=== PATIENT | female | born 1995 | race Caucasian/White ===

== ENCOUNTER 2025-03-12 14:47 | Outpatient (CLI) | payer BC, OTHER, SELFPAY ==
--- NOTE | ~2025-03-12 | XR_ITS ---
HISTORY: M54.50 - Low back pain, unspecified COMPARISON: None. TECHNIQUE: 2 view lumbar spine. FINDINGS: Lumbar vertebral bodies are normally aligned. There are 5 non-rib bearing lumbar vertebral bodies. Disc spaces and vertebral body heights are well maintained. There are no lytic or sclerotic lesions. Paraspinal soft tissues are unremarkable. Straightening of the normal lordotic curvature is identified, possibly muscular in origin. IMPRESSION: No acute compression fracture, as detailed above. Reviewed, dictated and finalized at location A.
== END 2025-03-12 14:48 | disposition home or self-care (01) ==
PROVIDERS: PCP Family Medicine; Visit Provider Family Medicine
DX: M54.50 Low back pain, unspecified (principal); G89.29 Other chronic pain
CPT/HCPCS: 72100

== ENCOUNTER 2025-07-15 13:07 | Emergency (ER) | payer BC, OTHER, SELFPAY ==
[2025-07-15 13:19] VITALS: BP 136/88; PULSE 106; RESP 18; TEMP 36.8; O2SAT 100
--- NOTE | 2025-07-15 14:21 | ED_ITS ---
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 Patient states that since last night, she has been having a little more than vaginal spotting as well as intermittent dizziness. She states that she called her tax commissioner today and advised that she come to the ED for further evaluation. Patient has had mild intermittent abdominal cramping. Her last pregnancies were without complications. Denies fevers, chills, discharge. Related Data Home Medications ?Medication ?Instructions ?Recorded ?Confirmed ?Last Taken ?Type alprazolam 0.5 mg tablet (Xanax) 0.5 mg PO QHS PRN 02/2412/31/24 Unknown History Allergies Allergy/AdvReac Type Severity Reaction Status Date / Time No Known Allergies Allergy Verified 07/15/25 13:21 Review of Systems 2 Review of Systems: Gen.: Denies fevers or chills Eyes: Denies eye pain or visual change ENT: Denies congestion Respiratory: Denies shortness of breath or cough CV: Denies chest pain or palpitations GI: Denies abdominal pain nausea, emesis or diarrhea denies burning, urgency, frequency or hematuria Musculoskeletal: Denies back pain or muscle pain Neuro: Denies numbness, tingling, weakness or focal weakness Skin: Denies rash Except as documented, all other systems reviewed and negative [facility] Social History Social History Smoking status: Current every day smoker Additional smoking assessment comments: A pack last the pt a few weeks. Alcohol intake: current Substance use: never Gender identity (if verbalized by the patient): Female Exam 2 Narrative: APPEARANCE: No acute distress, nontoxic, resting in bed EYES: EOMI HEENT: Normocephalic, atraumatic, OMM RESPIRATORY: No respiratory distress Clear to auscultation bilaterally with no rhonchi wheezing or rales. CARDIOVASCULAR: Regular rate and rhythm without murmurs rubs or gallops. ABDOMINAL: Soft, mild suprapubic tenderness to palpation without rebound or guarding. MUSCULOSKELETAl: Moves all extremities. No clubbing, cyanosis or edema. NEURO: Awake and alert. Following commands, speech normal, no focal deficits SKIN:: Warm, dry. No rashes lesions or abrasions PSYCHIATRIC: Normal affect/mood, Course Vital Signs Vital signs: Vital Signs Temperature 98.2 F 07/15/25 13:19 Pulse Rate 106 H 07/15/25 13:19 Respiratory Rate 18 07/15/25 13:19 Blood Pressure 136/88 07/15/25 13:19 Pulse Oximetry 100 07/15/25 13:19 Temperature 97.9 F 07/15/25 14:45 Pulse Rate 92 07/15/25 15:29 Respiratory Rate 20 07/15/25 15:29 Blood Pressure 117/70 07/15/25 15:29 Pulse Oximetry 99 07/15/25 15:29 MDM - OB/Uterine Contractions MDM Narrative Medical decision making narrative: 30-year-old female approximately 8 weeks by Armin. He presented to the ED for vaginal bleeding and abdominal cramping. Initial evaluation, patient with no acute distress, afebrile, hemodynamically stable. She had some very mild suprapubic tenderness to palpation. CBC without significant abnormalities. Mild hypokalemia. Urine positive. HCG 800. She is not in the discriminatory zone at this point. She is otherwise stable. Repeat hCG will be scheduled for 2 days from now. She has an appoint with Ob on Monday which I advised her to go to. UA did show possible evidence of UTI so she will be given Keflex. Patient was agreeable to this plan. Given strict return precautions. Differential Diagnosis Differential diagnosis: Likely other Medical Records Attestation: I reviewed the patient's medical records. Lab Data Attestation: I reviewed the patient's lab results. 07/15/25 14:37 07/15/25 14:37 Labs: Lab Results 07/15/25 07/15/25 Range/Units 14:26 14:37 WBC 11.7 H (4.5-10.0) K/mm3 RBC 4.27 (4.2-5.4) M/mm3 Hgb 13.2 (12.0-15.0) g/dL Hct 38.9 (37.0-47.0) % MCV 91.1 (80-100) fl MCH 30.9 (26-34) pg MCHC 33.9 (32-36) g/dl RDW 14.2 (11.5-14.5) % Plt Count 298 (150-375) k/mm3 MPV 9.9 (7.4-10.4) fl Immature Gran % (Auto) 0.3 (0-0.5) % Neut % (Auto) 69.3 (45.5-73.1) % Lymph % (Auto) 24.3 (18.3-44.2) % [place] % (Auto) 5.2 (2.6-8.5) % Eos % (Auto) 0.6 (0-4.4) % Baso % (Auto) 0.3 (0.2-1.2) % Lymph # (Auto) 2.84 (0.9-3.2) K/mm3 [place] # (Auto) 0.6 (0.1-0.6) K/mm3 Eos # (Auto) 0.1 (0-0.3) K/mm3 Baso # (Auto) 0.0 (0.0-0.1) K/mm3 Abs Immat Gran (auto) 0.04 H (0.00-0.031) K/mm3 Absolute Neuts (auto) 8.1 H (1.3-6.7) K/mm3 Absolute Nucleated RBC 0.000 (0.0-0.012) K/mm3 Nucleated RBC % 0.0 (0.0-0.2) % Sodium 137 (137-145) mmol/L Potassium 3.2 L (3.4-5.0) mmol/L Chloride 104 (98-107) mmol/L Carbon Dioxide 22 (22-30) mmol/L Anion Gap 11 (4-12) mmol/L BUN 7 (7-17) mg/dL Creatinine 0.53 L (0.7-1.0) mg/dL Estim Creat Clear Calc 97 ml/min Estimated GFR > 60 (59 - ) Glucose 93 (65-110) mg/dL Calcium 9.0 (8.4-10.2) mg/dL Total Bilirubin 0.4 (0.2-1.3) mg/dL AST 38 H (14-36) U/L ALT 41 H (6-35) U/L Alkaline Phosphatase 57 (38-126) U/L Total Protein 8.2 (6.3-8.2) g/dL Albumin 4.6 (3.5-5.1) g/dL Beta HCG, Quant 862.71 mIU/ML Urine Color Yellow (Yellow) Urine Appearance Cloudy H (Clear) Urine pH 6.0 (5.0-9.0) Ur Specific [place] 1.012 (1.001-1.035) Urine Protein Negative (Negative) mg/dL Urine Glucose (UA) Negative (Negative) mg/dL Urine Ketones Trace H (Negative) mg/dL Ur Blood (Man) 2+ H (Negative) Urine Nitrate Negative (Negative) Urine Bilirubin Negative (Negative) Urine Urobilinogen 0.2 (<2.0) mg/dL Leukocyte Esterase Rfl 3+ H (Negative) REBECCA/UL Urine RBC 0-2 (0-2) /hpf Urine WBC 21-50 H (0-3) /hpf Ur Squamous Epith Cells Moderate (Few) /hpf Urine Bacteria 1+ H /hpf Urine Casts 0-2 Urine Test Positive Discharge Plan Discharge Clinical Impression: Vaginal bleeding in patient after first trimester Patient Disposition: Home Condition: Stable Instructions: Antibiotic Form, Non-Threatening First Trimester Vaginal Bleed (ED) Additional Instructions: Continue to monitor the amount of vaginal bleeding or having. If he continues to have significant dizziness to the point he can not walk or worsening symptoms please return to the ED. take Keflex as prescribed. Continue follow-up with your OB on Monday as scheduled. Patient Language: Setswana Prescriptions: New cephalexin 500 mg capsule 500 mg PO Q12H 7 Days Qty: 14 0RF No Action alprazolam [Xanax] 0.5 mg tablet 0.5 mg PO QHS PRN Other Ambulatory Orders: HCG Qualitative Urine (Routine) Timeframe: 2 Days Location: Determined by Patient Ordered By: Sabas Chavez Follow-up/Referrals: Preston Gomez MD [Primary Care Provider, Family Practice]
[2025-07-15 14:32] LABS: Add Urine Microscopic? YES; Appearance Urine Cloudy (Clear); Glucose Urine UA Negative (Negative); Leukocyte Esterase Ur 3+ LEU/UL (Negative); Nitrate Urine Negative (Negative); Non Pathogenic Casts 0-2; Specific Grav Ur 1.012 (1.001-1.035)
--- OUTSIDE RECORDS SUMMARY | 2025-07-15 14:33 | XMS_ITS | Clinical Summary ---
Author Organization [facility] Address [address] [place] [address] Care Team Providers Care Repairer Pump Name Role Phone Preston Gomez MD Primary Care Provider Allergies No known active allergies Medications ondansetron ODT (ZOFRAN-ODT) 4 mg disintegrating tablet Dissolve 1 tablet oral every 4 hours as needed for nausea or vomiting. 15 tablet 01/22/20 22 Active Additional Information Patient not taking.Reported on 08/04/2022 [employer] COVID-19 Ag Home Test kit 06/27/20 22 Active Active Problems Problem Noted Date Diagnosed Date Conjunctival hemorrhage, left eye 08/04/2022 Assessment & Plan (08/05/2022 1:02 PM CDT): Reassured patient of benign process and natural course of ZURDO. Observe. Nonintractable episodic headache 08/04/2022 Assessment & Plan (08/05/2022 1:03 PM CDT): No ophthalmic cause for headaches evident on exam today. No signs of angle closure. IOP normal. Angles open on gonio. Recommended pt seek care of PCP for headaches. Family History Medical History Relation Name Comments Macular degeneration Maternal Grandmother Glaucoma Neg Hx Relation Name Status Comments Maternal Grandfather Maternal Grandmother Social History Tobacco Use Types Packs/Day Years Used Date Smoking Tobacco: Unknown Tobacco Cessation:Counseling Given: Not Answered Personal Safety Answer Date Recorded Getting School Help Needed Not on file 01/06 Comments No Sex and Gender Information Value Date Recorded Sex Assigned at Not on file Legal Sex Female 5:48 AM CDT Gender Identity Not on file Sexual Orientation Not on file Obstetrics History Last Filed Vital Signs Vital Sign Reading Time Taken Comments Blood Pressure 111/72 01/21/2022 11:00 AM CDT Pulse 102 01/21/2022 11:30 AM CDT Temperature 37.1 C (98.7 F) 01/21/2022 5:52 AM CDT Respiratory Rate 16 01/21/2022 5:52 AM CDT Oxygen Saturation 99% 01/21/2022 11:30 AM CDT Inhaled Oxygen Concentration - - Weight 59 kg (130 lb) 01/21/2022 5:52 AM CDT Height 154.9 cm (5' 1) 01/21/2022 5:52 AM CDT Body Mass Index 24.56 01/21/2022 5:52 AM CDT Plan of Treatment Health Maintenance Due Date Last Done Comments Cervical Cancer Screening 1993 Depression Screening 1993 Hepatitis C Screening 1993 DTaP/Tdap/Td Vaccine (1 - Tdap) 2004 Varicella Vaccines (1 of 2 - 13+ 2-dose series) 2006 Hepatitis B Screening 2011 Regular Well Visit/Exam 18-64 2011 HPV Vaccines (1 - 3-dose SCD M series) 2020 Covid-19 Vaccine (3 - 2024-2 6 season) 2025 12/03/2021, 01/25/2021 Influenza Vaccine (#1) 2025 , 08/25/2020 Pneumococcal vaccine <65 Aged Out No longer eligible based on patient's age to complete this topic Insurance [employer] CHOICE Care Teams Repairer Pump Relationship Specialty Start Date End Date Preston Gomez MD [address] [facility] [address] [place] [address] PCP - General Family Medicine 08/04/22
[2025-07-15 14:34] LABS: Pregnancy On Board Control Positive
[2025-07-15 14:45] VITALS: BP 125/85; PULSE 91; RESP 19; TEMP 36.6; O2SAT 100
[2025-07-15 14:46] LABS: Hematocrit 38.9 % (37.0-47.0); Hemoglobin 13.2 g/dL (12.0-15.0); Immature Granulocyte Percent A 0.3 % (0-0.5); Lymphocytes Absolute Auto 2.84 K/mm3 (0.9-3.2); Mean Corpuscular HGB Conc 33.9 g/dl (32-36); Mean Corpuscular Hemoglobin 30.9 pg (26-34); Mean Corpuscular Volume 91.1 fl (80-100); Nucleated Red Blood Cells Absolute Auto 0.000 K/mm3 (0.0-0.012); Nucleated Red Blood Cells Perc 0.0 % (0.0-0.2); Platelet Count Result 298 k/mm3 (150-375); Red Blood Count 4.27 M/mm3 (4.2-5.4); White Blood Count 11.7 K/mm3 (4.5-10.0)
[2025-07-15 14:54] LABS: Alanine Aminotransferase 41 U/L (6-35); Albumin Level 4.6 g/dL (3.5-5.1); Alkaline Phosphatase 57 U/L (38-126); Anion Gap 11 mmol/L (4-12); Aspartate Amino Transferase 38 U/L (14-36); Bilirubin,Total 0.4 mg/dL (0.2-1.3); Blood Urea Nitrogen 7 mg/dL (7-17); Calcium 9.0 mg/dL (8.4-10.2); Carbon Dioxide 22 mmol/L (22-30); Chloride 104 mmol/L (98-107); Estimated CRCL calculation 97 ml/min; Estimated Glomerular Filt Rate > 60; Glucose 93 mg/dL (65-110); Potassium 3.2 mmol/L (3.4-5.0); Sodium 137 mmol/L (137-145); Total Protein 8.2 g/dL (6.3-8.2)
[2025-07-15 15:10] LABS: Beta HCG Quantitative 862.71 mIU/ML
[2025-07-15 15:29] VITALS: BP 117/70; PULSE 92; RESP 20; O2SAT 99
--- OUTSIDE RECORDS SUMMARY | 2025-07-15 16:01 | XMS_ITS | Clinical Summary ---
Author Organization [facility] Address [address] [place] [address] Care Team Providers Care Casino Cashier Name Role Phone Preston Gomez MD Primary [...] patient's age to complete this topic Insurance [employer] CHOICE Care Teams Casino Cashier Relationship Specialty Start Date End Date Preston Gomez MD [address] [facility] [address] [place] [address] PCP - General Family Medicine 08/04/22
== END 2025-07-15 15:30 | disposition home or self-care (01) ==
PROVIDERS: Emergency Provider Student in an Organized Health Care Education/Training Program; PCP Family Medicine
DX: O20.9 Hemorrhage in early pregnancy, unspecified (principal); O99.331 Smoking (tobacco) complicating pregnancy, first trimester; F17.210 Nicotine dependence, cigarettes, uncomplicated; Z3A.08 8 weeks gestation of pregnancy
CPT/HCPCS: 36415; 80053; 81001; 81025; 84702; 85025; 99283

== ENCOUNTER 2025-07-17 14:18 | Outpatient (CLI) | payer OTHER, SELFPAY ==
--- OUTSIDE RECORDS SUMMARY | 2025-07-17 16:05 | XMS_ITS | Clinical Summary ---
Author Organization [facility] Address [address] [place] [address] Care Team Providers Care Skin Care Consultant Name Role Phone Preston Gomez MD Primary [...] patient's age to complete this topic Insurance [employer] CHOICE Care Teams Skin Care Consultant Relationship Specialty Start Date End Date Preston Gomez MD [address] [facility] [address] [place] [address] PCP - General Family Medicine 08/04/22
[2025-07-17 17:35] LABS: Beta HCG Quantitative 1019.50 mIU/ML
== END 2025-07-17 14:19 | disposition home or self-care (01) ==
LOC: ANHLAB 14:20
PROVIDERS: PCP Family Medicine; Visit Provider Obstetrics & Gynecology
DX: O26.859 Spotting complicating pregnancy, unspecified trimester (principal); Z3A.00 Weeks of gestation of pregnancy not specified
CPT/HCPCS: 36415; 84702; 86850; 86900; 86901

== ENCOUNTER 2025-07-21 11:03 | Outpatient (CLI) | payer OTHER, SELFPAY ==
[2025-07-21 12:15] LABS: Beta HCG Quantitative 1216.10 mIU/ML
== END 2025-07-21 11:04 | disposition home or self-care (01) ==
PROVIDERS: PCP Family Medicine; Visit Provider Nurse Practitioner Family
DX: O20.9 Hemorrhage in early pregnancy, unspecified (principal); Z3A.00 Weeks of gestation of pregnancy not specified
CPT/HCPCS: 36415; 84702

== ENCOUNTER 2025-08-01 08:09 | Outpatient (CLI) | payer BC, OTHER, SELFPAY ==
--- OUTSIDE RECORDS SUMMARY | 2025-08-01 08:16 | XMS_ITS | Clinical Summary ---
Author Organization [facility] Address [address] [place] [address] Care Team Providers Care Food And Beverage Associate Name Role Phone Preston Gomez MD Primary [...] patient's age to complete this topic Insurance [employer] CHOICE Care Teams Food And Beverage Associate Relationship Specialty Start Date End Date Preston Gomez MD [address] [facility] [address] [place] [address] PCP - General Family Medicine 08/04/22
[2025-08-01 09:35] LABS: Beta HCG Quantitative 4.02 mIU/ML
== END 2025-08-01 08:10 | disposition home or self-care (01) ==
LOC: ANHLAB 08:12
PROVIDERS: PCP Family Medicine; Visit Provider Nurse Practitioner Obstetrics & Gynecology
DX: O20.9 Hemorrhage in early pregnancy, unspecified (principal); Z3A.00 Weeks of gestation of pregnancy not specified
CPT/HCPCS: 36415; 84702